=== PATIENT | male | born 1980 | race Caucasian/White ===

== ENCOUNTER 2018-08-07 12:12 | Emergency (ER) | payer SELFPAY ==
[~2018-08-07] VITALS: Ht 182.9 cm; Wt 117.9 kg
[2018-08-07 12:37] VITALS: BP 138/87
[2018-08-07] MEDS ORDERED: NAPROXEN 500 MG TABLET PO STA (12:46)
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
[2018-08-07] MEDS ORDERED: HYDROcodone/APAP 5/325MG 1 TAB TABLET PO ONE (13:00)
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
[2018-08-07] MEDS ORDERED: DICL50TA4 PO (13:31)
== END 2018-08-07 13:45 | disposition home or self-care (01) ==
LOC: ER 12:12
DX: M79.651 Pain in right thigh (principal)
CPT/HCPCS: 73552; 99283

== ENCOUNTER 2020-12-26 10:14 | Emergency (ER) | payer OTHER ==
[~2020-12-26] VITALS: Ht 182.9 cm; Wt 110.0 kg
[~2020-12-26 10:14] MED LIST: DICL50TA4 PO
[2020-12-26 11:35] VITALS: BP 157/91
[2020-12-26] MEDS ORDERED: IBUPROFEN 200 MG TABLET. PO ONE (12:00)
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
--- NOTE | 2020-12-26 12:37 | RAD ---
EXAMINATION: Left knee radiograph. VIEWS: 4 views of the left knee COMPARISON: None INDICATION:40 years, Male, pain and tenderness. FINDINGS: No acute fracture, dislocation or subluxation. No bone erosion or periosteal reaction. Marginal trico mpartmental osteophytes with mild joint space loss in the medial compartment. No soft tissue swelling or sizable joint effusion. IMPRESSION: 1. No acute osseous process. 2. Mild tricompartmental osteoarthritis. Electronically signed by: Ayaan Walsh DO (12/26/2020 12:34 PM) [id number]
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
[2020-12-26] MEDS ORDERED: IBUP-1007 PO (13:04)
[2020-12-26] MEDS ORDERED: ORPH100T PO (13:04)
== END 2020-12-26 13:14 | disposition home or self-care (01) ==
LOC: ER 10:14
DX: M25.562 Pain in left knee (principal); M54.5 Low back pain; G89.11 Acute pain due to trauma; V49.49XA Driver injured in collision with other motor vehicles in traffic accident, initial encounter; Y92.488 Other paved roadways as the place of occurrence of the external cause; Y93.89 Activity, other specified; Y99.8 Other external cause status
CPT/HCPCS: 72131; 73564; 99284-25